=== PATIENT | male | born 1985 | race Two or more races ===

== ENCOUNTER 2019-10-25 20:56 | Emergency (ER) | payer SELFPAY ==
[~2019-10-25] VITALS: Ht 172.7 cm; Wt 88.6 kg
[2019-10-25 21:00] VITALS: BP 141/75
--- NOTE | 2019-10-25 21:23 | PHYS DOC ---
Adult General Chief Complaint Chief Complaint: TESTICULAR PAIN OR INJURY HPI HPI 34-year-old male presents to the emergency department with complaints of left testicular pain. Patient states this has been ongoing for approximately 1 month just worsening over the last day or so. Patient describes some injury approximate 1 month ago with his children, he as well describes some injury at work. states he has had some dark, blood-tinged semen. He has no active discharge. denies any vaginal complaints. Review of Systems Review of Systems Constitutional: Denies fever or chills [] Respiratory: Denies cough or shortness of breath [] Cardiovascular: No additional information not addressed in HPI [] GI: Denies abdominal pain, nausea, vomiting, bloody stools or diarrhea [] : left testicular pain/swelling Musculoskeletal: Denies back pain or joint pain [] Integument: Denies rash or skin lesions [] All other systems were reviewed and found to be within normal limits, except as documented in this note. Physical Exam Physical Exam Constitutional: Well developed, well nourished, no acute distress, non-toxic appearance. [] Abdomen: Bowel sounds normal, soft, inguinal tenderness, no masses, no pulsatile masses. [] Skin: Warm, dry, no erythema, no rash. [] Neurologic: Alert and oriented X 3, no focal deficits noted. [] Psychologic: Affect normal, judgement normal, mood normal. [] : left testicular swelling, pain on palpation, hard left testicle Current Patient Data Vital Signs Vital Signs Date Time Temp Pulse Resp B/P (MAP) Pulse Ox O2 Delivery O2 Flow Rate FiO2 10/25/19 22:02 72 16 96 Room Air 10/25/19 21:00 98.6 141/75 (97) 98.6 Lab Values Laboratory Tests Test 10/25/19 21:17 Urine Collection Type Void Urine Color Yellow Urine Clarity Cloudy Urine pH 6.0 (<5.0-8.0) Urine Specific [place] 1.025 (1.000-1.030) Urine Protein Negative mg/dL (NEG-TRACE) Urine Glucose (UA) Negative mg/dL (NEG) Urine Ketones (Stick) Negative mg/dL (NEG) Urine Blood Negative (NEG) Urine Nitrite Negative (NEG) Urine Bilirubin Negative (NEG) Urine Urobilinogen Dipstick 0.2 mg/dL (0.2 mg/dL) Urine Leukocyte Esterase Negative (NEG) Urine RBC 0 /HPF (0-2) Urine WBC 5-10 /HPF (0-4) Urine Squamous Epithelial Cells Few /LPF Urine Bacteria Few /HPF (0-FEW) Urine Hyaline Casts Few /HPF Urine Mucus Slight /LPF EKG EKG [] Radiology/Procedures Radiology/Procedures [] Course & Med Decision Making Course & Med Decision Making Pertinent Labs and Imaging studies reviewed. (See chart for details) []34-year-old male presents to the emergency department with complaints of left testicular pain. Patient states this has been ongoing for approximately 1 month just worsening over the last day or so. Patient describes some injury approximate 1 month ago with his children, he as well describes some injury at work. states he has had some dark, blood-tinged semen. He has no active discharge. denies any vaginal complaints. US with evidence of epididymitis GC/Chlamydia pending will follow up Plan levaquin 500mg daily x 10 days Tramadol po x 1 Dragon Disclaimer Dragon Disclaimer This electronic medical record was generated, in whole or in part, using a voice recognition dictation system. Departure Departure Impression: Primary Impression: Epididymitis Disposition: HOME, SELF-CARE Condition: STABLE Referrals: NON,STAFF (PCP) Patient Instructions: Epididymitis Additional Instructions: US with evidence of epidymitis (inflammation of part of the testicle) Levaquin 500mg po daily x 10 days Tramadol rx provided x 3 days Tylenol/Motrin as needed for pain/fever Scripts Tramadol Hcl (TRAMADOL HCL) 50 Mg Tablet 50 MG PO Q6HRS PRN for PAIN, #12 TAB 0 Refills Prov: JOSY ESPINO MD 10/25/19 Levofloxacin (LEVAQUIN) 500 Mg Tablet 1 TAB PO DAILY for 10 Days, #10 TAB 0 Refills Prov: JOSY ESPINO MD 10/25/19 JOSY ESPINO MD Oct 25, 2019 21:23
[2019-10-25 21:30] LABS: BILIRUBIN,URINE NEGATIVE (NEG); CLARITY,URINE CLOUDY; COLOR,URINE YELLOW; NITRITE,URINE NEGATIVE (NEG); PROTEIN,URINE NEGATIVE (NEG-TRACE); UROBILINOGEN,URINE 0.2 mg/dL (0.2 mg/dL)
[2019-10-25 21:36] LABS: RBC,URINE 0 /HPF (0-2)
[2019-10-25 21:37] LABS: BACTERIA,URINE FEW /HPF (0-FEW); HYALINE CASTS, URINE FEW /HPF; SQUAMOUS EPITHELIAL CELL,UR FEW /LPF
[2019-10-25] MEDS ORDERED: LEVO500T59 PO (21:58)
[2019-10-25] MEDS ORDERED: TRAM50TA PO (21:58)
--- NOTE | 2019-10-25 22:10 | RAD ---
Study: US TESTICULAR/SCROTUM Indication: Left testicular pain and swelling. Comparison: None. TECHNIQUE: Grayscale and color Doppler sonographic evaluation of the scrotum and scrotal contents. Findings: The right testicle measures 4.9 x 3.1 x 2.5 cm. The left testicle measures 4.5 x 3.0 x 2.3 cm. Homogeneous testicular echotexture and maintained Doppler flow. The right epididymal head is measured at 0.9 cm. Normal echotexture of the epididymal body. The left epididymal head measures 1 cm. The echogenicity of the left epididymal body and tail is more heterogeneous relative to the right as well as hypervascular. There is also hyperemia of the scrotal soft tissues adjacent to the epididymal tail. No scrotal fluid collection. Small bilateral hydroceles. Impression: 1. Asymmetrically prominent left epididymal body and tail relative to the right. The left epididymal body and tail are hypervascular and there is localized hyperemia of the scrotum overlying the epididymal tail. The findings are compatible with epididymitis on the left without findings of orchitis. No scrotal abscess. 2. Small bilateral hydroceles. Electronically signed by: TAMMY WHALEN MD (10/25/2019 10:07 PM) [id number]
== END 2019-10-25 22:08 | disposition home or self-care (01) ==
LOC: ER 20:56
DX: N45.1 Epididymitis (principal); N50.812 Left testicular pain; R60.0 Localized edema
CPT/HCPCS: 76870; 81001; 87086; 87491; 87591; 99284